=== PATIENT | male | born 1960 | race Caucasian/White ===

== ENCOUNTER 2021-03-17 22:25 | Emergency (ER) | payer BC, SELFPAY ==
[2021-03-17 22:17] VITALS: BP 150/61; PULSE 81; RESP 20; TEMP 37.6; O2SAT 94; BMI 23.6
--- NOTE | 2021-03-17 22:22 | XR_ITS ---
PROCEDURE INFORMATION: Exam: XR Chest Exam date and time: 03/17/2021 10:22 PM Age: 60 years old Clinical indication: Cough and fever and shortness of breath; Patient HX: Cough, SOA, fever, -negative covid test; Additional info: SOA cough TECHNIQUE: Imaging protocol: XR of the chest. Views: 1 view. COMPARISON: No relevant prior studies available. FINDINGS: Lungs: Mild linear subsegmental atelectasis at the lung bases. No consolidation. No pulmonary edema. Pleural spaces: No pleural effusion. No pneumothorax. Heart/Mediastinum: Normal heart size. Bones/joints: Unremarkable. IMPRESSION: Mild linear bibasilar atelectasis. Otherwise unremarkable.
[2021-03-17 22:33] LABS: Basophils # 0.1 K/mm3 (0-0.2); Basophils % 1.2 % (0.1-2.0); Eosinophils # 0.1 K/mm3 (0.0-0.4); Eosinophils % 1.9 % (0.1-12.0); Hematocrit 41.5 % (42.0-52.0); Lymphocytes # 1.2 K/mm3 (0.7-4.5); Lymphocytes % 29.5 % (10-50); Mean Corpuscular HGB Conc 33.6 g/dL (31.8-35.4); Mean Corpuscular Hemoglobin 32.6 pg (27.0-31.2); Mean Platelet Volume 8.1 fl (7.4-10.4); Monocytes # 0.5 K/mm3 (0.1-1.0); Monocytes % 12.1 % (1.7-9.3); Neutrophils # 2.2 K/mm3 (1.8-7.8); Neutrophils % 55.3 % (37.0-80.0); Platelet Count 218 K/mm3 (142-424); Red Blood Count 4.29 M/mm3 (4.60-6.20); Red Cell Distribution Width 13.2 % (11.5-17.5)
--- NOTE | 2021-03-17 22:36 | ECG_ITS ---
APPROVED REPORT Exam: Resting ECG HR:74 bpm ECG Measurements Heart Rate 74 AXES DC 188 P 66 QRSd 86 QRS 22 QT 372 T 58 QTc 412 Conclusion Normal sinus rhythm Normal ECG Electronically signed by : Michael Barney MD 03/18/2021 19:55:44
[2021-03-17 22:40] LABS: Blood Urea Nitrogen 10 mg/dl (9-20); Calcium 8.9 mg/dl (8.4-10.2); Carbon Dioxide 31 mmol/L (22.0-30.0); Chloride 101 mmol/L (98-107); Creatinine Clearance Estimated 84 mL/min (50-200); Estimated Glomerular Filt Rate 137 ml/min (>60); GFR (African American) 166 ML/MIN (>60); Glucose 81 mg/dl (74-100); Sodium 137 mmol/L (136-145)
[2021-03-17 22:43] LABS: Coronavirus 19, PCR Not Detected (NotDetected); Influenza A, PCR Not Detected (NotDetected); Influenza B, PCR Not Detected (NotDetected)
[2021-03-17 23:00] LABS: Troponin I < 0.01 ng/ml (0.00-0.034)
--- NOTE | 2021-03-17 23:03 | HMH.EDGENADL ---
ED Disposition Clinical Impression: Cough Disposition: Home, Self-Care Condition on Discharge: Good Additional Instructions: Your x-ray did not show pneumonia. Your EKG was normal as well as your bloodwork. You likely have a viral respiratory infection. Return with worsening shortness of breath or any concerns. Referrals: Provider,Referral, [Primary Care Provider] - - Critical Care Critical Care Time: No Attestation: On 03/17/21, the high probability of a clinically significant, sudden or life threatening deterioration of the following system(s) required my full and direct attention, intervention and personal management. The time I documented below is in addition to time spent performing reported procedures but includes the following listed in this critical care notation. Medical Decision Making - Alexander Inquiry Pt receiving controlled substance: No Vital Signs: 03/17/21 22:17 03/17/21 23:33 03/18/21 00:34 Temperature 99.6 F 98.8 F Temperature Source Oral Pulse Rate 68 89 Pulse Rate [Right] 81 Respiratory Rate 20 20 Blood Pressure 147/75 H Blood Pressure [Right Arm] 150/61 H Blood Pressure Mean [Right Arm] 90 02 Sat by Pulse Oximetry 94 L Oxygen Delivery Method Room Air - Lab Data Lab Results 03/17/21 22:25: WBC 4.0 L, RBC 4.29 L, Hgb 14.0 L, Hct 41.5 L, MCV 97.0 H, MCH 32.6 H, MCHC 33.6, RDW 13.2, Plt Count 218, MPV 8.1, Neut % (Auto) 55.3, Lymph % (Auto) 29.5, [place] % (Auto) 12.1 H, Eos % (Auto) 1.9, Baso % (Auto) 1.2, Neut # (Auto) 2.2, Lymph # (Auto) 1.2, [place] # (Auto) 0.5, Eos # (Auto) 0.1, Baso # (Auto) 0.1 03/17/21 22:25: Sodium 137, Potassium 4.0, Chloride 101, Carbon Dioxide 31 H, Anion Gap 9.0, BUN 10, Creatinine 0.60 L, Estimated Creat Clear 84, Estimated GFR 137, Est GFR ( Amer) 166, Glucose 81, Calcium 8.9, Troponin I < 0.01 03/17/21 22:38: SARS-CoV-2 (PCR) Not detected, Influenza A Untype (PCR) Not detected, Influenza Type B (PCR) Not detected Result diagrams: 03/17/21 22:25 03/17/21 22:25 Orders (Tests/Meds): ED MEDICATIONS Discontinued Medications Generic Name Dose Route Start Last Admin Trade Name Neal PRN Reason Stop Dose Admin Albuterol/Ipratropium 3 ml 03/17/21 22:22 03/17/21 23:33 Ipratropium/Albuterol 3 Ml Neb IH 03/17/21 22:23 3 ml ONCE ONE Administration Medical Decision Narrative: The patient is a 60 year old male who presents with cough, congestion, and chest pain. He is awake, alert, stable. His vital signs are WNL. Lungs are clear. Labs including CBC, BMP, troponin were negative. EKG shows no ischemic changes. CXR unremarkable and does not show pneumonia. COVID test is negative. At this point low suspicion for acute life threatening etiology of patient's pain or cough. Will discharge home with return precatuions. General Adult HPI - General Chief complaint: Weakness Stated complaint: SOA Time Seen by Provider: 03/17/21 22:30 Mode of Arrival: EMS Limitations: No Limitations Description of Symptoms (Recalled from ER Triage Doc. by RN): pt c/o SOA,CP,body aches,fever, - History of Present Illness HPI narrative: The patient is a 60 year old male who presents to the ED with cough, congestion, shortness of breath and chest pain. This started earlier today. He states he has been having a cough productive of cream sputum. He notes subjective fever and chills. No known exposure to covid. Denies nausea, vomiting, diarrhea, abdominal pain, headache, or any other symptoms. - Related Data Home Medications Medication Instructions Recorded Confirmed Azelastine HCl [Azelastine Nasal 137 mcg NS BID 03/17/21 03/17/21 [place] 30mL Bottle] Docusate Sodium 100 mg PO DAILY 03/17/21 03/17/21 Duloxetine HCl 60 mg PO DAILY 03/17/21 03/17/21 Fluticasone Propionate [Flovent 2 spray INHALATION DAILY 03/17/21 03/17/21 Hfa 110mcg Inhaler] Meloxicam 15 mg PO DAILY 03/17/21 03/17/21 Nicotine Polacrilex [Nicotine Gum 4 mg PO Q1HP
[2021-03-17 23:33] VITALS: PULSE 68
[2021-03-18 00:34] VITALS: BP 147/75; PULSE 89; RESP 20; TEMP 37.1; O2SAT 95
== END 2021-03-18 00:36 | disposition home or self-care (01) ==
PROVIDERS: Emergency Provider Emergency Medicine
DX: R06.02 Shortness of breath (principal); R50.9 Fever, unspecified; F17.210 Nicotine dependence, cigarettes, uncomplicated
CPT/HCPCS: 71045; 80048; 84484; 85025; 93005; 99283; C9803; U0003; U0005

== ENCOUNTER 2023-01-24 16:43 | Emergency (ER) | payer BC, SELFPAY ==
--- NOTE | 2023-01-24 16:41 | ECG_ITS ---
APPROVED REPORT Exam: Resting ECG HR:44 bpm ECG Measurements Heart Rate 44 AXES VT 182 P 55 QRSd 97 QRS 20 QT 439 T 90 QTc 389 Conclusion SINUS BRADYCARDIA MODERATE ST DEPRESSION [0.05+ mV ST DEPRESSION] ABNORMAL ECG UNCONFIRMED REPORT Electronically signed by : Michael Barney MD 01/25/2023 13:52:16
[2023-01-24 16:43] VITALS: BP 165/85; PULSE 46; RESP 25; TEMP 36.5; O2SAT 99; BMI 25.1
--- NOTE | 2023-01-24 16:46 | XR_ITS ---
PROCEDURE INFORMATION: Exam: XR Chest Exam date and time: 01/24/2023 4:58 PM Age: 62 years old Clinical indication: Pain; Chest pressure TECHNIQUE: Imaging protocol: Radiologic exam of the chest. Views: 1 view. COMPARISON: CR XR CHEST PORTABLE 03/17/2021 11:10 PM FINDINGS: Lungs: Unremarkable. No consolidation. Pleural spaces: Unremarkable. No pleural effusion. No pneumothorax. Heart/Mediastinum: Unremarkable. No cardiomegaly. Bones/joints: Unremarkable. IMPRESSION: No acute findings.
--- NOTE | 2023-01-24 16:52 | HMH.EDGENADL ---
Discharge Plan Disposition Patient Disposition: Xfer Short-Term Hosp Chief Complaint: Chest Pain Prescriptions Prescriptions: No Action meloxicam 15 MG tablet 15 mg PO DAILY nicotine (polacrilex) 4 MG gum 4 mg PO Q1HP PRN (Reason: Nicotine Cravings) docusate sodium 100 MG capsule 100 mg PO DAILY azelastine 137 MCG/0.137 ML bottle 137 mcg NS BID fluticasone propionate 120 PUFFS HFA aerosol inhaler 2 spray INHALATION DAILY duloxetine 60 MG capsule,delayed release(DR/EC) 60 mg PO DAILY Referrals Follow up/Referrals: Brigido Murray MD [Primary Care Provider] - See instructions Clinical Impressions Clinical Impression: ACS (acute coronary syndrome) Discharge ED Provider: Rhett Ching General Adult HPI General Chief complaint: Chest Pain Stated complaint: CHEST PAIN Time Seen by Provider: 01/24/23 16:46 History of Present Illness HPI narrative: Patient is a 62-year-old male with previous hypertension not currently on any medications, seasonal allergies who presents emergency department for evaluation of chest pressure. Patient had an episode of chest pressure lasting less than an hour, substernal yesterday that spontaneously abated. Today patient has had last 2 hours substernal chest pressure, nonmodifiable, moderate to severe in intensity, radiating up into his neck and shoulders. Denies cough. Has had intermittent shortness of breath since using a whole bottle of febreeze in his room few days ago. Pain does not radiate into his abdomen or back. Multi pack-year smoker. No other acute complaints at this time. Related Data Home Medications Medication Instructions Recorded Confirmed azelastine 137 mcg (0.1 %) nasal 137 mcg NS BID Allergy symptoms 03/17/21 03/17/21 spray aerosol docusate sodium 100 mg capsule 100 mg PO DAILY constipation 03/17/21 03/17/21 duloxetine 60 mg capsule,delayed 60 mg PO DAILY Depression 03/17/21 03/17/21 release fluticasone propionate 110 2 spray inhalation DAILY Allergy 03/17/21 03/17/21 mcg/actuation HFA aerosol inhaler symptoms meloxicam 15 mg tablet 15 mg PO DAILY Back ache/back pain 03/17/21 03/17/21 nicotine (polacrilex) 4 mg gum 4 mg PO Q1HP PRN Nicotine Cravings 03/17/21 03/17/21 Allergies Allergy/AdvReac Type Severity Reaction Status Date / Time No Known Allergies Allergy Verified 03/17/21 22:24 [facility] Disclaimer: The information contained in this section may have been updated after the patient was seen, as this information can be updated by other users. Social History Smoking Status: Current every day smoker alcohol intake: never current occupational status: unemployed Travel in the last 8 weeks: None ROS Obtained: Yes Systems reviewed as appropriate & no additional complaints except as documented Physical Exam General General appearance: alert and in no apparent distress Head Head exam: atraumatic and normocephalic Eye Eye exam: Present PERRL and EOMI ENT ENT exam: Present mucous membranes moist Neck Neck exam: Present normal inspection Chest Chest inspection: Present normal inspection and symmetric chest wall rise Respiratory Respiratory exam: Present normal lung sounds bilaterally; Absent respiratory distress Cardiovascular Cardiovascular exam: Present normal rhythm, bradycardia and other (No pitting edema) Abdominal Exam Abdominal exam: Present soft; Absent tenderness Extremities Exam Extremities exam: Present normal inspection and other (Palpable bilateral radial pulses) Neurological Exam Neurological exam: Present alert Psychiatric Psychiatric exam: Present normal affect Skin Skin exam: Present warm and dry Medical Decision Making Alexander Inquiry Pt receiving controlled substance: No Vital Signs: 01/24/23 16:43 01/24/23 17:02 01/24/23 17:22 Temperature 97.7 F Temperature Source Oral Pulse Rate 60 45 L Pulse Rate [Right] 46 L Respiratory Rate 25 H
[2023-01-24 17:02] VITALS: BP 170/96; PULSE 60; O2SAT 99
[2023-01-24 17:04] LABS: Basophils # 0.1 K/mm3 (0-0.2); Basophils % 0.7 % (0.1-2.0); Eosinophils # 0.5 K/mm3 (0.0-0.4); Hematocrit 43.9 % (42.0-52.0); Hemoglobin 14.3 g/dL (14.1-18.0); Lymphocytes # 3.9 K/mm3 (0.7-4.5); Lymphocytes % 42.8 % (10-50); Mean Corpuscular HGB Conc 32.6 g/dL (31.8-35.4); Mean Corpuscular Hemoglobin 30.8 pg (27.0-31.2); Mean Corpuscular Volume 94.3 fl (80-94); Mean Platelet Volume 7.9 fl (7.4-10.4); Monocytes # 0.6 K/mm3 (0.1-1.0); Monocytes % 6.8 % (1.7-9.3); Neutrophils % 44.7 % (37.0-80.0); Platelet Count 327 K/mm3 (142-424); Red Blood Count 4.65 M/mm3 (4.60-6.20); Red Cell Distribution Width 12.8 % (11.5-17.5)
[2023-01-24 17:18] LABS: Alanine Aminotransferase 26 U/L (12-78); Albumin Level 4.4 g/dl (3.5-5.0); Albumin/Globulin Ratio 1.2 (1.1-1.8); Alkaline Phosphatase 112 U/L (38-126); Anion Gap 12.5 mEq/L (5-15); Aspartate Amino Transferase 35 U/L (17-59); Bilirubin,Total 0.2 mg/dl (0.2-1.3); Blood Urea Nitrogen 19 mg/dl (9-20); Calcium 9.1 mg/dl (8.4-10.2); Carbon Dioxide 28 mmol/L (22.0-30.0); Chloride 103 mmol/L (98-107); Creatinine Clearance Estimated 87 mL/min (50-200); Estimated Glomerular Filt Rate 98 ml/min (>60); GFR (African American) 118 ML/MIN (>60); Globulin 3.6 g/dL (1.3-3.2); Glucose 127 mg/dl (74-100); Potassium 3.5 mmoL/L (3.5-5.1); Sodium 140 mmol/L (136-145)
--- NOTE | 2023-01-24 17:21 | PC.NURSE ---
before nitro and morphine patient rated chest pain a 5/10 now after medications it is a 2/10
[2023-01-24 17:22] VITALS: PULSE 45
[2023-01-24 17:30] VITALS: BP 159/87; PULSE 47; O2SAT 97
--- NOTE | 2023-01-24 17:31 | PC.NURSE ---
Dr. Ching notified of critical troponin
--- NOTE | 2023-01-24 17:32 | PC.NURSE ---
paged Dr. Tobias for Dr. Ching
--- NOTE | 2023-01-24 17:52 | ECG_ITS ---
APPROVED REPORT Exam: Resting ECG HR:46 bpm ECG Measurements Heart Rate 46 AXES ID 194 P 11 QRSd 93 QRS 62 QT 417 T -26 QTc 375 Conclusion SINUS BRADYCARDIA NONSPECIFIC ST & T-WAVE ABNORMALITY ABNORMAL ECG UNCONFIRMED REPORT Electronically signed by : Mcihael Barney MD 01/25/2023 13:51:55
[2023-01-24 18:01] VITALS: BP 132/75; PULSE 64; O2SAT 99
--- NOTE | 2023-01-24 18:02 | PC.NURSE ---
NEHA WITH [facility] CONSULTED AT THIS TIME FOR HEPARIN DOSAGE OF 1,000 UNITS/HR PER VERBAL ORDER OF DR. MURILLO. WILL ENTER ORDER IN [facility] AT THIS TIME
[2023-01-24 18:11] LABS: Activated Partial Thrombo Time 28.2 seconds (22.8-30.6); INR 0.93 (0.9-1.1); Prothrombin Time 10.1 seconds (10.1-12.5)
--- NOTE | 2023-01-24 18:17 | PC.NURSE ---
Gave report to Tana CRUZ at [facility]
--- NOTE | 2023-01-24 18:26 | PC.NURSE ---
[facility] at bedside and giving them report. Packet given to [facility]. Pt's medlist, shoes, and personal belongings placed in pt care bag. Heparin gtt given to [employer].
[2023-01-24 18:37] VITALS: BP 132/75; PULSE 64; RESP 18; TEMP 36.5; O2SAT 99
--- NOTE | 2023-01-24 18:38 | PC.NURSE ---
Called [facility] and let the ER staff know pt was leaving helipad know.
== END 2023-01-24 18:35 | disposition short-term general hospital (02) ==
PROVIDERS: Emergency Provider Emergency Medicine; PCP Family Medicine
DX: I24.9 Acute ischemic heart disease, unspecified (principal); R07.9 Chest pain, unspecified; I10 Essential (primary) hypertension; F17.200 Nicotine dependence, unspecified, uncomplicated
CPT/HCPCS: 71045; 80053; 84484; 85025; 85610; 85730; 93005; 96374; 96375; 99291

== ENCOUNTER → 2023-03-21 11:47 | Outpatient (CLI) | payer BC, SELFPAY ==
[2023-03-21 13:52] LABS: Chloride 106 mmol/L (98-107); Potassium 4.6 mmoL/L (3.5-5.1); Sodium 141 mmol/L (136-145)
[2023-03-21 13:54] LABS: Anion Gap 10.6 mEq/L (5-15); Blood Urea Nitrogen 17 mg/dl (9-20); Carbon Dioxide 29 mmol/L (22.0-30.0); Estimated Glomerular Filt Rate 98 ml/min (>60); GFR (African American) 118 ML/MIN (>60)
[2023-03-21 13:55] LABS: Alanine Aminotransferase 25 U/L (12-78); Albumin Level 3.9 g/dl (3.5-5.0); Alkaline Phosphatase 96 U/L (38-126); Aspartate Amino Transferase 31 U/L (17-59); Bilirubin,Direct 0.2 mg/dl (0.0-0.4); Bilirubin,Total 0.2 mg/dl (0.2-1.3); Calcium 8.9 mg/dl (8.4-10.2); Chol/HDL Ratio 5.1 (1-3.5); Cholesterol 164 mg/dl (140-200); Glucose 120 mg/dl (74-100); HDL Cholesterol 32 mg/dl (40-60); Total Protein,Serum 6.8 g/dl (6.3-8.2); Triglycerides 195 mg/dl (30-150); VLDL Cholesterol 39 mg/dL (0-40)
[2023-03-21 14:06] LABS: Direct LDL Cholesterol 83.61 mg/dL (100-129)
== END ==
PROVIDERS: PCP Family Medicine; Visit Provider Nurse Practitioner
DX: I10 Essential (primary) hypertension (principal); E78.5 Hyperlipidemia, unspecified
CPT/HCPCS: 36415; 80048; 80061; 80076

== ENCOUNTER 2023-08-22 15:10 | Outpatient (CLI) | payer BC, SELFPAY ==
[2023-08-22 15:35] LABS: Basophils # 0.1 K/mm3 (0-0.2); Basophils % 0.9 % (0.1-2.0); Eosinophils # 0.3 K/mm3 (0.0-0.4); Eosinophils % 2.8 % (0.1-12.0); Hematocrit 42.9 % (42.0-52.0); Lymphocytes # 3.2 K/mm3 (0.7-4.5); Lymphocytes % 31.8 % (10-50); Mean Corpuscular HGB Conc 32.7 g/dL (31.8-35.4); Mean Corpuscular Hemoglobin 32.3 pg (27.0-31.2); Mean Corpuscular Volume 98.9 fl (80-94); Mean Platelet Volume 7.4 fl (7.4-10.4); Monocytes # 0.7 K/mm3 (0.1-1.0); Monocytes % 7.3 % (1.7-9.3); Neutrophils # 5.7 K/mm3 (1.8-7.8); Neutrophils % 57.2 % (37.0-80.0); Platelet Count 334 K/mm3 (142-424); Red Blood Count 4.33 M/mm3 (4.60-6.20)
[2023-08-22 15:51] LABS: Alanine Aminotransferase 27 U/L (12-78); Albumin Level 4.2 g/dl (3.5-5.0); Alkaline Phosphatase 92 U/L (38-126); Anion Gap 11.2 mEq/L (5-15); Aspartate Amino Transferase 34 U/L (17-59); Bilirubin,Direct 0.1 mg/dl (0.0-0.4); Bilirubin,Indirect 0.2 mg/dL (0.0-0.9); Bilirubin,Total 0.3 mg/dl (0.2-1.3); Bilirubin,Unconjugated 0.2 mg/dL (0.0-1.1); Blood Urea Nitrogen 11 mg/dl (9-20); Calcium 9.4 mg/dl (8.4-10.2); Carbon Dioxide 28 mmol/L (22.0-30.0); Chloride 105 mmol/L (98-107); Chol/HDL Ratio 5.4 (1-3.5); Cholesterol 156 mg/dl (140-200); Estimated Glomerular Filt Rate 114 ml/min (>60); GFR (African American) 138 ML/MIN (>60); Glucose 85 mg/dl (74-100); HDL Cholesterol 29 mg/dl (40-60); Magnesium 2.1 mg/dl (1.6-2.3); Potassium 4.2 mmoL/L (3.5-5.1); Sodium 140 mmol/L (136-145); Total Protein,Serum 6.9 g/dl (6.3-8.2); Triglycerides 331 mg/dl (30-150); VLDL Cholesterol 66 mg/dL (0-40)
[2023-08-22 16:02] LABS: Direct LDL Cholesterol 69.32 mg/dL (100-129)
[2023-08-22 16:22] LABS: Thyroid Stimulating Hormone 2.28 uIU/mL (0.465-4.68)
== END 2023-08-22 23:59 ==
LOC: LAB 15:10
PROVIDERS: PCP Family Medicine; Visit Provider Internal Medicine
DX: E78.5 Hyperlipidemia, unspecified (principal); I10 Essential (primary) hypertension; Z95.5 Presence of coronary angioplasty implant and graft; I25.10 Atherosclerotic heart disease of native coronary artery without angina pectoris; Z72.0 Tobacco use
CPT/HCPCS: 36415; 80048; 80061; 80076; 83735; 84439; 84443; 85025

== ENCOUNTER 2024-09-05 12:31 | Outpatient (CLI) | payer MEDICAID, SELFPAY ==
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
== END 2024-09-05 23:59 | disposition home or self-care (01) ==
LOC: RT 12:32
PROVIDERS: PCP Family Medicine; Visit Provider Internal Medicine
DX: I25.10 Atherosclerotic heart disease of native coronary artery without angina pectoris (principal); Z95.5 Presence of coronary angioplasty implant and graft; I10 Essential (primary) hypertension; E78.5 Hyperlipidemia, unspecified; R06.01 Orthopnea; I24.9 Acute ischemic heart disease, unspecified
CPT/HCPCS: 93306